=== PATIENT | female | born 1965 | race Caucasian/White ===

== ENCOUNTER 2023-07-17 08:11 | Emergency (ER) | payer SELFPAY ==
--- NOTE | ~2023-07-17 | CT_ITS ---
EXAMINATION: CT brain wo con INDICATION: Headache COMPARISON: None TECHNIQUE: Standard unenhanced head CT. The dose-length product (DLP) was 605.33 mGy-cm. The mA was a djusted according to patient size. Iterative reconstruction technique was employed. FINDINGS: No intracranial hemorrhage, acute infarction, or abnormal mass lesion. The ventricles are n ormal. No abnormal mass effect or midline shift. The huddleston-white matter differentiation is normal. The basal cisterns are patent. The orbits are normal. The paranasal sinuses, mastoids and calvarium are normal. IMPRESSION: 1. No acute intracranial abnormality. Reviewed, dictated and finalized at location F. ANICAL CAD DESIGNER
[2023-07-17 08:17] VITALS: BP 151/89; PULSE 83; RESP 18; TEMP 36.5; O2SAT 100
[2023-07-17] MEDS: KETOROLAC 15 MG/ML VIAL (*BKC) IV PUSH (09:04)
[2023-07-17] MEDS: MAGNESIUM SULF 1 GM/D5W 100 ML 1 GM/100 ML BAG IVPB (09:04)
[2023-07-17] MEDS: PROCHLORPERAZINE EDISYLATE 10 MG/2 ML VIAL IV PUSH (09:04)
[2023-07-17] MEDS: SODIUM CHLORIDE 0.9% IV 500 ML 999 ML IV CONT (09:05)
--- NOTE | 2023-07-17 09:15 | ED.HA ---
HPI - Headache General Chief Complaint: Headache Stated Complaint: Migraine Time Seen by Provider: 07/17/23 08:24 Source: patient Limitations: no limitations History of Present Illness HPI Narrative: This is a 57 yo female who presents with a headache of 2 weeks duration. She states it is bilateral across her entire head including her temples. Her right ear feels stuffy. Pain is 5/10 in severity. Her PCP prescribed a 6day steroid taper 2 Fridays ago (9 days ago) which helped at first and allowed her to go back to work. She started another prednisone taper this most recent Tuesday but was told if it didn't help after a day or two to present to the ED; today's dose was 10mg. She is also having dizziness and nausea. She will occasionally take OTC Tylenol 3x/day. Doesn't take NSAIDs due to underlying kidney issues. Denies vision changes. Denies trauma. Not on anticoagulation. Home medication also includes Imitrex. Lives by self but furnace not working and denies other CO producing devices. No previous imaging; does not follow with a neurologist despite having chronic headaches. She did start taking antibiotics prescribed by her PCP because of sinus pressure. She feels that she has had some difficulty walking due to the intensity of the pain but otherwise denies AMS, unilateral sensation changes, motor issues. Photophobia but no phonophobia. Related Data Allergies Allergy/AdvReac Type Severity Reaction Status Date / Time No Known Allergies Allergy Verified 07/17/23 08:36 [facility] Past Medical History Medical History (Updated 07/19/23 @ 00:08 by Leena Tang MD) Headache Kidney dysfunction Social History Social History Smoking packs per day: 1 Smoking cigarettes per day: 20.0 Smoking status: Current every day smoker Other substance usage details: denies IVDU Living arrangements: alone Exam Const: General: healthy appearing, no acute distress and alert; No diaphoretic Nutritional Appearance: well nourished Orientation/consciousness: patient oriented x3 and No confusion Limitations: no limitations Other: appears in mild distress HENMT: Head: normal to inspection, no contusions, no hematomas and no lacerations Ears: external ears normal Face/Nose/Sinus: Normal external nose present, no nasal discharge noted and no epistaxis Face and sinus: normal facial exam and sinus tenderness (mild TTP) maxillary Other: no tenderness to palpation/percussion of temples. Scant drainage appreciated behind R TM but otherwise without effusion or bulging TM. No TTP of pinna. No TTP or irregularities suggestive of mastoiditis. Eyes: Direct Ophthalmoscopy: photophobia (mild) Neck: Neck: no meningeal signs Resp: Effort & Inspection: normal respiratory effort, not labored, no retractions, not tachypneic and no use of accessory muscles Cardio: Rate: regular rate GI: Inspection: non-distended GI Palp: Yes Soft to palpation Skin: General skin exam: normal color Wounds: no wounds Neuro: General: patient oriented x3, moves all extremities, no meningeal signs and no focal motor deficits Speech: normal speech Other: mild gait instability; unable to stand on tiptoes; able to bear weight Extrem: General: normal to inspection Psych: Mental Status: mental status grossly normal Affect: normal affect, No Sad affect present and No Anxious affect present Attitude: cooperative Course Vital Signs Vital signs: Vital Signs Temperature 97.7 F 07/17/23 08:17 Pulse Rate 83 07/17/23 08:17 Respiratory Rate 18 07/17/23 08:17 Blood Pressure 151/89 H 07/17/23 08:17 Pulse Oximetry 100 07/17/23 08:17 Temperature 97.7 F 07/17/23 08:17 Pulse Rate 83 07/17/23 08:17 Respiratory Rate 18 07/17/23 08:17 Blood Pressure 151/89 H 07/17/23 08:17 Pulse Oximetry 100 07/17/23 08:17 MDM - Headache MDM Narrative Medical decision making na
== END 2023-07-17 10:24 | disposition home or self-care (01) ==
PROVIDERS: Emergency Provider Student in an Organized Health Care Education/Training Program; PCP Nurse Practitioner
DX: R51.9 Headache, unspecified (principal); F17.210 Nicotine dependence, cigarettes, uncomplicated; Z79.899 Other long term (current) drug therapy
CPT/HCPCS: 70450; 96361; 96365; 96375; 99284; J0780; J1885; J3475; J7040

== ENCOUNTER 2023-10-10 13:58 | Emergency (ER) | payer OTHER, SELFPAY ==
[2023-10-10 14:15] VITALS: BP 131/85; PULSE 98; RESP 16; TEMP 37.1; O2SAT 97
[2023-10-10 14:24] VITALS: BP 131/85; PULSE 98; RESP 16; TEMP 37.1; O2SAT 97
--- NOTE | 2023-10-10 14:34 | ED.HA ---
HPI - Headache General Chief Complaint: Headache Stated Complaint: Headaches History of Present Illness HPI Narrative: PATIENT PRESENTS WITH A HEADACHE THAT SHE HAS HAD SINCE JUNE OF 2023. PATIENT STATES HER PRIMARY CARE PROVIDER TREATED FOR SINUS INFECTION WHICH DID NOT HELP THEN SHE WENT TO THE EMERGENCY ROOM AND HAD A NEGATIVE CT SCAN AND GOT SOME RELIEF AFTER THE MEDICATION GIVEN IV IN THE EMERGENCY ROOM. PATIENT STATES SHE HAS BEEN TAKING SUDAFED FOR HER SINUS CONGESTION AND PRESSURE AND FEELS LIKE HER SINUS INFECTION HAS RETURNED. PATIENT STATES THIS HEADACHE IS SIMILAR TO THE ONES THAT SHE HAS HAD THE PAST AND STATES THAT THIS IS NOT ?NOT THE WORST HEADACHE OF HER LIFE ?. Related Data Home Medications Medication Instructions Recorded Confirmed albuterol sulfate 90 mcg/actuation 90 mcg inhalation Q4-6H PRN 10/10/23 10/10/23 aerosol inhaler Wheezing levothyroxine 175 mcg tablet 175 mcg PO DAILY 10/10/23 10/10/23 Allergies Allergy/AdvReac Type Severity Reaction Status Date / Time No Known Allergies Allergy Verified 07/17/23 08:36 Review of Systems Review of Systems: CONSTITUTIONAL: DENIES CHILLS, OR SWEATS. REPORTS FEVER AND GENERALIZED BODY ACHES EYES: DENIES VISUAL CHANGES, REDNESS, OR DISCHARGE. ENT: DENIES OTALGIA. REPORTS NASAL CONGESTION RUNNY NOSE AND SORE THROAT CARDIOVASCULAR: DENIES CHEST PAIN, PALPITATIONS, OR EDEMA. RESPIRATORY: DENIES DYSPNEA. REPORTS OCCASIONAL COUGH GASTROINTESTINAL: DENIES ABDOMINAL PAIN, NAUSEA, VOMITING, OR DIARRHEA. GENITOURINARY: DENIES DYSURIA OR HEMATURIA. SKIN: DENIES RASH OR ITCHING. MUSCULOSKELETAL: DENIES BACK PAIN, JOINT PAIN, OR MYALGIA. REPORTS GENERALIZED BODY ACHES NEUROLOGIC: DENIES HEADACHE, NUMBNESS, OR WEAKNESS. PSYCHIATRIC: DENIES ANXIETY OR DEPRESSION. [facility] Past Medical History Medical History (Updated 10/10/23 @ 14:50 by RONA Rogers) Headache Kidney dysfunction Social History Social History Smoking packs per day: 1 Smoking cigarettes per day: 20.0 Smoking status: Current every day smoker Other substance usage details: denies IVDU Living arrangements: alone Comments AT TIME OF SIGNATURE, AGREE WITH NURSING PAST MEDICAL, SURGICAL, SOCIAL AND FAMILY HISTORY. THERE IS NO RELEVANT FAMILY HISTORY PERTINENT TO THE PRESENTING COMPLAINT Exam Narrative: THE PATIENT IS A WELL-DEVELOPED, WELL-NOURISHED IN NO ACUTE DISTRESS. SKIN: SKIN IS WARM AND DRY WITHOUT ERYTHEMA, SWELLING OR EXUDATE. THERE IS GOOD TURGOR. NO TENTING. HEAD: ATRAUMATIC. NORMOCEPHALIC. NO TEMPORAL OR SCALP TENDERNESS. EYES: MOIST AND BRIGHT. SCLERA AND CONJUNCTIVAE NORMAL. NO DISCHARGE. PERRLA. EXTRAOCULAR MOTIONS INTACT. GROSS VISUAL ACUITY INTACT. EARS: PINNA IS NORMAL SHAPE AND CONTOUR. CLEAR EXTERNAL AUDITORY CANALS. TM PEARLY GROVE WITH GOOD CONE OF LIGHT, NO ERYTHEMA OR SUPPURATION. BILATERAL CERUMEN NOTED NO GROSS HEARING DEFICIT. NOSE: PINK, MOIST MUCOSA WITH GOOD AIR MOVEMENT. CLEAR RHINORRHEA WITHOUT NASAL FLARING. SEPTUM MIDLINE. MOUTH: MOIST MUCOUS MEMBRANES. MILD MAXILLARY SINUS PRESSURE AND TENDERNESS THROAT; MILD ERYTHEMA NOTED TO POSTERIOR OROPHARYNX WITH MODERATE POSTNASAL DRAINAGE. WITHOUT EXUDATE OR ULCERATION.. UVULA MIDLINE. NORMAL MOVEMENT OF SOFT PALATE. NECK: SUPPLE AND NONTENDER WITH FULL RANGE OF MOTION WITHOUT DISCOMFORT. NO MENINGEAL SIGNS. LUNGS: EQUAL AND BILATERAL BREATH SOUNDS WITHOUT WHEEZES, RALES OR RHONCHI. CHEST: THE CHEST WALL IS WITHOUT RETRACTIONS OR USE OF ACCESSORY MUSCLES. HEART: HAS A REGULAR RATE AND RHYTHM WITHOUT MURMUR, GALLOPS, CLICK OR RUB. ABDOMEN: SOFT, NONTENDER WITH POSITIVE ACTIVE BOWEL SOUNDS. NO REBOUND TENDERNESS. EXTREMITIES: WITHOUT CYANOSIS, CLUBBING OR EDEMA. EQUAL 2+ DISTAL PULSES AND 2 SECOND CAPILLARY REFILL NOTED. NEUROLOGIC: ALERT, ACTIVE, . THE PATIENT MOVES ALL EXTREMITIES WITH NORMAL MUSCLE STRENGTH. NORMAL MUSCLE TONE IS NOTED. NORMAL JOB FORWARDER
== END 2023-10-10 15:00 | disposition home or self-care (01) ==
PROVIDERS: Emergency Provider Nurse Practitioner Family
DX: J32.9 Chronic sinusitis, unspecified (principal); R51.9 Headache, unspecified; F17.210 Nicotine dependence, cigarettes, uncomplicated
CPT/HCPCS: 99213; G0463

== ENCOUNTER 2023-10-16 12:14 | Emergency (ER) | payer OTHER, SELFPAY ==
[2023-10-16 12:17] VITALS: BP 142/86; PULSE 92; RESP 18; TEMP 36.8; O2SAT 98
[2023-10-16] MEDS: SODIUM CHLORIDE 0.9% IV 1,000 ML 999 ML IV CONT (12:39)
[2023-10-16] MEDS: diphenhydrAMINE HCl INJ 50 MG/ML VIAL 25 MG IV PUSH (12:40)
[2023-10-16] MEDS: PROCHLORPERAZINE EDISYLATE 10 MG/2 ML VIAL IV PUSH (12:40)
--- NOTE | 2023-10-16 12:42 | ED.GENADULT ---
HPI - General Adult General Chief complaint: Headache Stated complaint: migraine Time Seen by Provider: 10/16/23 12:28 History of Present Illness HPI narrative: 58-year-old female presenting to the emergency department for evaluation of a persistent headache since June. Patient reports she does have history of migraines but states this headache is mildly different from her typical migraine. Patient has been to the emergency department and to Urgent Care but has not had follow up with her headache clinic. Patient states that she did have a change in insurance and is no longer able follow-up with the headache clinic. Patient was seen in the emergency department in July did have a negative head CT at that time. Patient does complain light sensitivity with intermittent nausea vomiting. Patient has been taking Excedrin for pain control but states this is not helping at this time. Patient denies any associated numbness or weakness. Related Data Home Medications Medication Instructions Recorded Confirmed albuterol sulfate 90 mcg/actuation 90 mcg inhalation Q4-6H PRN 10/10/23 10/10/23 aerosol inhaler Wheezing levothyroxine 175 mcg tablet 175 mcg PO DAILY 10/10/23 10/10/23 Allergies Allergy/AdvReac Type Severity Reaction Status Date / Time No Known Allergies Allergy Verified 10/16/23 12:15 Review of Systems Review of Systems: All systems reviewed & are unremarkable except as noted in HPI and below PMFSH Past Medical History Medical History (Updated 10/16/23 @ 14:54 by Devyn Barahona MD) Headache Kidney dysfunction Social History Social History Smoking packs per day: 1 Smoking cigarettes per day: 20.0 Smoking status: Current every day smoker Other substance usage details: denies IVDU Living arrangements: alone Exam Narrative: APPEARANCE: Well appearing, no pain, no distress, well-nourished. HEAD: normocephalic, atraumatic. EYES: PERRLA/EOMI, conjunctivae clear. NOSE: Normal no drainage EARS:TMS clear with good light reflex. NECK: Supple. No adenopathy, no masses. RESPIRATORY: Airway patent, respirations nonlabored. Clear to auscultation bilaterally, no rales, rhonchi, wheezing. CARDIOVASCULAR: Regular rate and rhythm without murmurs rubs or gallops. ABDOMINAL: Soft, nontender, nondistended, normal bowel sounds MUSCULOSKELETAL: Moves all extremities. Strength/ROM intact, No edema, No calf tenderness. NEURO: Alert. Cranial nerves II through XII intact. Normal strength reflexes, negative Romberg SKIN: Warm, dry. Normal Color PSYCHIATRIC: Normal affect/mood. Course Course Emergency Course: 58-year-old female presenting to the emergency department for evaluation of migraine. Patient did have a recent CT scan in July which showed no acute intracranial abnormality. Patient was treated with Compazine, Benadryl, Toradol, Decadron and Mag sulfate and does feel improved. Patient had been following up with her primary care physician for her headaches but is unable to with her current insurance. Patient will be provided follow-up with Neurology. All questions and concerns were addressed patient was comfortable with the plan for discharge and close follow-up. Vital Signs Vital signs: Vital Signs Temperature 98.3 F 10/16/23 12:17 Pulse Rate 92 10/16/23 12:17 Respiratory Rate 18 10/16/23 12:17 Blood Pressure 142/86 H 10/16/23 12:17 Pulse Oximetry 98 10/16/23 12:17 Oxygen Delivery Room Air 10/16/23 12:17 Temperature 98.3 F 10/16/23 12:17 Pulse Rate 74 10/16/23 13:56 Respiratory Rate 18 10/16/23 13:56 Blood Pressure 146/99 H 10/16/23 13:56 Pulse Oximetry 98 10/16/23 13:56 Oxygen Delivery Room Air 10/16/23 12:17 Medical Decision Making Differential Diagnosis Differential Diagnosis: Headache, migraine Vital Signs Vital Signs: Vital Signs Temperature 98.3 F 10/16/23 12:17 Pul
[2023-10-16 13:04] LABS: Basophils Absolute Auto 0.1 K/mm3 (0.0-0.1); Basophils Percent Auto 1.2 % (0.2-1.2); Eosinophils Absolute Auto 0.9 K/mm3 (0-0.3); Eosinophils Percent Auto 8.4 % (0-4.4); Hematocrit 39.7 % (37.0-47.0); Hemoglobin 12.8 g/dL (12.0-15.0); Immature Granulocyte Absolute 0.03 K/mm3 (0.00-0.031); Immature Granulocyte Percent A 0.3 % (0-0.5); Lymphocytes Absolute Auto 4.65 K/mm3 (0.9-3.2); Lymphocytes Percent Auto 44.4 % (18.3-44.2); Mean Corpuscular HGB Conc 32.2 g/dl (32-36); Mean Corpuscular Hemoglobin 29.8 pg (26-34); Mean Corpuscular Volume 92.3 fl (80-100); Mean Platelet Volume 11.7 fl (7.4-10.4); Monocytes Absolute Auto 1.1 K/mm3 (0.1-0.6); Monocytes Percent Auto 10.5 % (2.6-8.5); Neutrophils Absolute Auto 3.7 K/mm3 (1.3-6.7); Neutrophils Percent Auto 35.2 % (45.5-73.1); Platelet Count Result 269 k/mm3 (150-375); Red Cell Distribution Width 13.1 % (11.5-14.5); White Blood Count 10.5 K/mm3 (4.5-10.0)
[2023-10-16 13:17] LABS: Alanine Aminotransferase 24 U/L (6-35); Albumin Level 3.8 g/dL (3.5-5.1); Alkaline Phosphatase 114 U/L (38-126); Anion Gap 4 mmol/L (8-16); Aspartate Amino Transferase 25 U/L (14-36); Bilirubin,Total 0.4 mg/dL (0.2-1.3); Blood Urea Nitrogen 21 mg/dL (7-17); Calcium 9.3 mg/dL (8.4-10.2); Carbon Dioxide 30 mmol/L (22-30); Chloride 105 mmol/L (98-107); Estimated CRCL calculation 73 ml/min; Estimated Glomerular Filt Rate 57; Glucose 90 mg/dL (65-110); Potassium 3.7 mmol/L (3.4-5.0); Sodium 139 mmol/L (137-145)
[2023-10-16] MEDS: KETOROLAC 15 MG/ML VIAL (*BKC) IV PUSH (13:55)
[2023-10-16] MEDS: MAGNESIUM SULF 1 GM/D5W 100 ML 1 GM/100 ML BAG IVPB (13:55)
[2023-10-16 13:56] VITALS: BP 146/99; PULSE 74; RESP 18; O2SAT 98
== END 2023-10-16 15:08 | disposition home or self-care (01) ==
PROVIDERS: Emergency Provider Emergency Medicine
DX: G43.909 Migraine, unspecified, not intractable, without status migrainosus (principal); F17.210 Nicotine dependence, cigarettes, uncomplicated
CPT/HCPCS: 36415; 80053; 85025; 96361; 96365; 96375; 99284; J0780; J1100; J1200; J1885; J3475; J7030